=== PATIENT | female | born 1985 | race Caucasian/White ===

== ENCOUNTER 2021-12-21 09:37 | Outpatient (CLI) | payer BC, SELFPAY ==
[2021-12-21 10:02] LABS: Cholesterol* 203 mg/dL (90-199); Glucose* 90 mg/dL (60-115)
[2021-12-21 10:03] LABS: HDL Cholesterol* 94 mg/dL (>=50); LDL Cholesterol Calculated 91 mg/dL (<100); Triglycerides* 88 mg/dL (40-149)
== END 2021-12-21 09:38 | disposition home or self-care (01) ==
PROVIDERS: PCP Family Medicine; Visit Provider Family Medicine
DX: Z01.419 Encounter for gynecological examination (general) (routine) without abnormal findings (principal); Z13.1 Encounter for screening for diabetes mellitus; Z13.6 Encounter for screening for cardiovascular disorders
CPT/HCPCS: 80061; 82947

== ENCOUNTER 2022-03-08 11:00 | Outpatient (RCR) | payer BC, SELFPAY | END 2022-03-08 16:41 | disposition home or self-care (01) | PROVIDERS: PCP Family Medicine; Visit Provider Family Medicine | DX: M54.2 Cervicalgia (principal); Z51.89 Encounter for other specified aftercare | CPT/HCPCS: 97110; 97112; 97140; 97161; 97530 ==

== ENCOUNTER 2024-10-14 20:48 | Emergency (ER) | payer OTHER, SELFPAY ==
--- OUTSIDE RECORDS SUMMARY | 2024-10-14 20:50 | XMS_ITS | Clinical Summary ---
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 Name Role Phone Pcp, No Primary Care Provider Unavailabl e Allergies Active Allergy Reactions Criticality Noted Date Comments Paroxetine Anaphylaxis High 12/03/2023 Medications No known medications Active Problems Problem Noted Date Diagnosed Date Pap smear for cervical cancer screening 12/11/19 24 Overview (12/11/2023): 11/2023 NIL/HPV Negative Plan: HPV-based testing due in 5 years Tobacco use 12/03/2023 Immunizations Immunization Administration Dates Next Due Influenza, IIV4 12/23/2018 Tdap 06/15/2015 Family History Medical History Relation Name Comments Kidney cancer Maternal Grandfather Cancer-breast No Family History Cancer-colon No Family History Relation Name Status Comments Maternal Grandfather Social History Tobacco Use Types Packs/Day Years Used Date Smoking Tobacco: Every Day Cigarettes Smokeless Tobacco: Never Tobacco Cessation:Ready to Q uit: Not Asked; Counseling Given: Not Answered Alcohol Use Standard Drinks/Week Comments Yes 3 (1 standard drink = 0.6 oz pur e alcohol) PHQ-2 Answer Date Recorded PHQ-2 TOTAL SCORE 0 12/03/2023 Social Connections Answer Date Recorded Do you often feel lonely or isolated from those around you? 0 12/03/2023 Financial Resource Strain Answer Date R ecorded Difficulty of Paying Living Expenses 3 12/03/2023 Difficulty of Paying Living Expenses Not on file 12/03/2023 Food Insecurity Answer Date Recorded Do you worry your food will run out before you are able to buy more? 1 12/03/2023 Transportation Needs Answer Date Record ed Does lack of transportation keep you from medica l appointments? 1 12/03/2023 Does lack of transportation keep you from work, meetings or getting things that you need? 1 12/03/2023 Housing Stability Answer Date Recorded What is your housing situation today? 1 12/03/2023 Utilities Answer Date Recorded Do you have trouble paying f or utilities (for example, heat, electricity, water, phone)? 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 Gender Identity Not on file Sexual Orientation Not on file Obstetrics History Last Filed Vital Signs Vital Sign Reading Time Taken Comments Blood Pressure 112/77 12/03/2023 8:40 AM CDT Pulse 76 12/03/2023 8:40 AM CDT Temperature - - Respiratory Rate - - Oxygen Saturation - - Inhaled Oxygen Concentration - - Weight 65.7 kg (144 lb 12.8 oz) 12/03/2023 8:40 AM CDT Height 163.6 cm (5' 4.41) 12/03/2023 8:40 AM CD T Body Mass Index 24.54 12/03/2023 8:40 AM CDT Plan of Treatment Health Maintenance Due Date Last Done Comments HIV for age 15-65 10/03/1998 Hepatitis C screening for ag e 18-79 10/03/2001 Hepatitis B series for 19+ ( 1 of 3 - 19+ 3-dose series) 10/03/2002 Pneumococcal series for age 6-49 (1 of 2 - PCV) 10/03/2002 COVID-19 vaccine series ( season) 2023 Influenza Vaccine (#1) 2024 12/23/2018 BMI (ht and wt on same day) for age 18+ 12/02/2024 12/03/2023 Depression screening for age 12+ 12/02/2024 12/03/19 24 Tetanus booster 06/14/2025 06/15/2015 Pap test for age 21-65 12/03/2028 4, 12/18/2018, 12/18/2018, Additional history exists Procedures Procedure Name Priority Date/Time Associated Diagnosis Comments 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 PAP [facility] Comment:NIL PREV. BX [facility] Comment:NONE SOURCE SCHOOL LIBRARY MEDIA PROGRAM DIRECTOR [facility] Comment:Cervix STATEMENT OF ADEQUACY [facility] Comment: Satisfactory for evaluation. Endocervical/transformation zone component present. INTERPRETATION/RESU LT [facility] Comment: Cytology Results: Negative for intraepithelial lesion or malignancy. COMMENT [facility] Comment: This case could not be evaluated with computer assisted technology. The slide was manually screened according to routine procedures. Microscopic features present suggestive of an interfering substance, including cellular debris, mucus, or possible lubricant (patient or provider use). Use of lubricant is not recommended. THERAPEUTIC CONSULTANT [facility] Comment: SXN, CT(ASCP) CT Screening location: [address] [address] REVIEW THERAPEUTIC CONSULTANT [facility] Comment: CBN, CT(ASCP) CT Screening location: [address] [address] THINPREP TIS PAP ALWAYS MESSAGE [facility] Comment: EXPLANATORY NOTE: The Pap is a screening test for cervical cancer. It is not a diagnostic test and is subject to false negative and false positive results. It is most reliable when a satisfactory sample, regularly obtained, is submitted with relevant clinical findings and history, and when the Pap result is evaluated along with historic and current clinical information. HPV HIGH RISK Not Detected NOT DETECTED [facility] Comment: Not Detected High Risk HPV types (16,18,31,33,35,39,45,51,52, 56,58,59,66,68) were not detected. Other HPV types which cause anogenital lesions may be present. The significance of the other types of HPV in malignant processes has not been established. Methodology: Real Time PCR Other (Other) 12/04/2023 8:0 4 AM CDT 12/05/2023 6:10 AM CDT Nela Lindquist DO PATHOLOGY/CYTOLOGY Final R esult [facility] [address] [place] [address], [facility] [address] [place] [address] from Last 3 Months or Most Recently Relevant to Health Maintenance Insurance [employer] [place] [id number] Care Teams Folded Cloth Taper Relationship Specialty Start Date End Date Pcp, No . PCP - General 11/26/23
[2024-10-14 20:51] VITALS: BP 122/61; PULSE 83; RESP 16; TEMP 36.2; O2SAT 98; BMI 25.5
--- NOTE | 2024-10-14 21:07 | ED_ITS ---
HPI - Animal Bite General Time Seen by Provider: 21:07 Date Seen: 10/14/24 Chief Complaint: Animal Bite Stated Complaint: animal bite Time Seen by Provider: 10/14/24 21:07 Source: patient Mode of arrival: ambulatory History of Present Illness HPI narrative: Zohra is a 39-year-old female who presents to the emergency department for evaluation of animal bite. Patient reports that this afternoon around 12 noon she was at work when she was taking out the trash. Patient states when she threw the garbage into the dumpster a raccoon bit her right forearm. Patient states that it did draw blood, patient was seen at urgent care initially who irrigated her wound however told her that she needs to go to the emergency department as they do not have vaccines at urgent care. Patient states that she has seen the raccoon's before and believes that they are in the dumpster eating all the cupcake and trash. Patient states that she did not notice any rabid behavior. Patient states that the police did shoot a raccoon and take it up to the [facility] for testing however test results will not come back till . Patient was unsure if she needs to be treated or not. Patient denies any pain, tingling, numbness, patient with full range of motion, no other injuries or complaints. Patient reports otherwise she is healthy, immunizations are up to date, tetanus 2016. Patient has never had rabies vaccination before. Related Data Allergies Allergy/AdvReac Type Severity Reaction Status Date / Time paroxetine Allergy Severe Swelling Verified 06/11/23 08:23 of Lip/Tongue/Throat Review of Systems Narrative: Past medical history, past surgical history, medications, allergies, family history, and social history were reviewed with the patient. No additional pertinent items. A medically appropriate review of systems was performed with pertinent positives and negatives noted in HPI, all other systems negative. [facility] Medical History Pityriasis rosea (07/2020) ?L42 - Pityriasis rosea (ICD-10) History of use of contraceptive intrauterine device (IUD) ?Z92.0 - Personal history of contraception (ICD-10) Depression ?F32.A - Depression, unspecified (ICD-10) delivery delivered ?O82 - Encounter for delivery without indication (ICD-10) Abscess of left nipple ?N61.1 - Abscess of the breast and nipple (ICD-10) Surgical History History of tubal ligation ?Z98.51 - Tubal ligation status (ICD-10) History of tonsillectomy ?Z90.89 - Acquired absence of other organs (ICD-10) History of third molar tooth extraction ?K08.409 - Partial loss of teeth, unspecified cause, unspecified class (ICD- 10) History of oral surgery (06/2020) ?Z98.890 - Other specified postprocedural states (ICD-10) History of section ?Z98.891 - History of uterine scar from previous surgery (ICD-10) Social History Narrative: 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 MMM Neck: non-tender, supple Cardio: regular rate. regular rhythm Resp: Normal work of breathing, no respiratory distress, lungs clear bilaterally, no wheezing, rhonchi, rales Chest/Back: no visual signs of trauma, no midline tenderness, no CVA tenderness Abdomen: soft, non distension, no tenderness, no peritoneal signs Neuro: alert and fully oriented. CN II-XII grossly intact. Grossly normal strength and sensation in all extremities. MSK: no deformities. Normal range of motion Integumentary/Skin: Bite to radial aspect of right distal foream, no active bleeding, no rash visualized, normal color Psych: normal affect, normal behavior Const: Vital Signs, click to edit/add: Vital Signs - 24 hr 10/14/24 20:51 Temperature 97.2 F L Pulse Rate [Left P ulse Oximeter] 83 Respiratory Rate 16 Blood Pressure [Ri ght Upper Arm] 122/61 Pulse Oximetry 98 Oxygen Delivery Me thod Room Air Course Vital Signs Vital signs: Initial Vital Signs Temperature 97.2 F L 10/14/24 20:51 Temperature Source Temporal Artery Scan 10/14/24 20:51 Pulse Rate 83 10/14/24 20:51 Pulse Rhythm Regular 10/14/24 20:51 Respiratory Rate 16 10/14/24 20:51 Blood Pressure 122/61 10/14/24 20:51 Blood Pressure Mean 81 10/14/24 20:51 Blood Pressure Position Sitting 10/14/24 20:51 Pulse Oximetry 98 10/14/24 20:51 Oxygen Delivery Method Room Air 10/14/24 20:51 Vital Signs Temperature 97.2 F L 10/14/24 20:51 Pulse Rate 83 10/14/24 20:51 Respiratory Rate 16 10/14/24 20:51 Blood Pressure 122/61 10/14/24 20:51 Pulse Oximetry 98 10/14/24 20:51 Oxygen Delivery Method Room Air 10/14/24 20:51 Temperature 97.2 F L 10/14/24 20:51 Pulse Rate 83 10/14/24 20:51 Respiratory Rate 16 10/14/24 20:51 Blood Pressure 122/61 10/14/24 20:51 Pulse Oximetry 98 10/14/24 20:51 Oxygen Delivery Method Room Air 10/14/24 20:51 Medications Administered Medications: Discontinued Medications Generic Name Dose Route Start Last Admin Trade Name Freq PRN Reason Stop Dose Admin Diphtheria/Tetanus/Acell Pertussis 0.5 ml 10/14/24 21:31 10/14/24 21:44 Tetanus/Diphth/Pertussis 0.5 Ml Syringe IM 10/14/24 21:32 0.5 ml .ONCE ONE Administration MDM - Animal Bite MDM Narrative Medical decision making narrative: Zohra is a 39-year-old female who presents to the emergency department for evaluation of animal bite. Upon arrival patient is nontoxic appearing, afebrile, no distress. Patient is hemodynamically stable and vital signs within normal limits. Patient last tetanus was 2015 so Tdap was given in ED, wound was irrigated. I discussed patient management with [facility] who recommends waiting for test results to return on prior to post exposure prophylaxis. [facility] will call patient if positive test results. I discussed with patient who is agreeable to the plan. Will send patient home on a 7 day course of Augmentin for infection prophylaxis. Strict return precautions discussed. Patient understands and agrees with the plan. Discharge Plan Discharge Clinical Impression: Bite by animal Patient Disposition: Home, Self-Care Condition: Stable Additional Instructions: The [facility] will call you if the test results are positive. If you do not hear from them no news is good news however you may call them on Sunday to follow-up. Please ice, alternate taking Tylenol or ibuprofen as needed for pain, swelling. Please take antibiotics twice daily to prevent infection for the next 7 days. Return to the emergency department if he develops high fever, significant redness or drainage from the wound, or any worsening symptoms. It was a pleasure taking care of you today. We hope you feel better soon. Follow Up/Referrals: Provider,Not a Local [Primary Care Provider, Family Practice] Stand Alone Forms: [employer] Info Instructions
[2024-10-14] MEDS: TETANUS/DIPHTH/PERTUSSIS 0.5 ML SYRINGE IM (21:44)
== END 2024-10-14 22:35 | disposition home or self-care (01) ==
LOC: ED 22:06
PROVIDERS: Emergency Provider Emergency Medicine
DX: S51.851A Open bite of right forearm, initial encounter (principal); Z23 Encounter for immunization; W55.51XA Bitten by raccoon, initial encounter
CPT/HCPCS: 90471; 90715; 99283; 99285